=== PATIENT | female | born 1950 | race Caucasian/White ===

== ENCOUNTER → 2016-09-20 | Outpatient (CLI) | payer OTHER ==
[~2016-09-20] MED LIST: ACETAMINOPHEN500 MG PO; ADVAIR 500/501 DISK IH; ALPRAZOLAM0.25 M2 PO; AMPHETAMINE SALT5 MG PO; ASTEPRO 0.15%30 ML BOTH NARES; AZELASTINE205.5 MCG/ BOTH NARES; CREON DR 12,001 EAC1 PO; CREON DR 3,0001 EACH PO; EFFEXOR25 MG PO; EFFEXOR50 MG PO; FA-80.8 MG PO; GLYCOTROL CAPS1 EACH PO; HYDROCHLOROTHIA25 MG PO; LANSOPRAZOLE30 MG PO; LISINOPRIL10 MG PO; MONTELUKAST SOD10 MG PO; NIFEDIPINE ER30 MG PO; PRINIVIL20 MG PO; SINGULAIR10 MG PO; VITAMIN B-6100 MG PO; VITAMIN B122500 MCG PO
[2016-09-20 09:18] LABS: HEMATOCRIT 38.2 % (36.0-46.0); MCHC 31.7 G/DL (30.0-36.0); MCV 94.8 FL (83-99); MEAN PLAT.VOLUME 9.5 uM^3 (9.5-12.4); PLATELET COUNT 323 K/uL (156-360); RBC DIS.WIDTH-SD 52.6 % (39-53); RED BLOOD COUNT 4.03 M/uL (3.80-5.20); WHITE BLOOD COUNT 5.7 K/uL (4.1-10.2)
[2016-09-20 09:22] LABS: PROTHROMBIN TIME 9.7 (9.2-11.2)
== END | disposition home or self-care (01) ==
LOC: OPR 08:28 → EDSTATUS 09:00 → OPR 09:00
PROVIDERS: Internal Medicine Hematology & Oncology
PROC: 0BBK3ZX Excision of Right Lung, Percutaneous Approach, Diagnostic (ICD-10-PCS; principal; 2016-09-20)
DX: C78.02 Secondary malignant neoplasm of left lung (principal); Z85.07 Personal history of malignant neoplasm of pancreas; Z92.21 Personal history of antineoplastic chemotherapy; Z92.3 Personal history of irradiation; Z80.3 Family history of malignant neoplasm of breast
CPT/HCPCS: 71010; 77012; 85027; 85610; 85730; 88305; 88341 TC; 88342 TC; J3010

== ENCOUNTER → 2017-10-06 | Outpatient (CLI) | payer OTHER ==
[~2017-10-06] MED LIST changes: +KLOR-CON M2020 MEQ PO; +VITAMIN B-2100 MG PO
== END | disposition home or self-care (01) ==
LOC: OPR 08:54 → EDSTATUS 10:00 → OPR 10:00
PROC: 0BDF4ZX Extraction of Right Lower Lung Lobe, Percutaneous Endoscopic Approach, Diagnostic (ICD-10-PCS; principal; 2017-10-06)
DX: C78.01 Secondary malignant neoplasm of right lung (principal); J95.811 Postprocedural pneumothorax; Z85.07 Personal history of malignant neoplasm of pancreas; Z92.3 Personal history of irradiation; Z88.2 Allergy status to sulfonamides
CPT/HCPCS: 71045; 77012; 85730; 88305; 88341 TC; 88342 TC